=== PATIENT | male | born 1955 | race African-American/Black ===

== ENCOUNTER 2023-03-15 08:49 | Emergency (ER) | payer MEDICAID ==
[~2023-03-15] VITALS: Ht 182.9 cm; Wt 68.0 kg
[~2023-03-15 08:49] MED LIST: MOTRIN
[2023-03-15 08:51] VITALS: O2SAT 100
[2023-03-15] MEDS ORDERED: KETOROLAC 30MG/ML VIAL IM ONE (09:15)
[2023-03-15 09:30] LABS: BASOPHILS % 0.2 % (0.0-2.0); EOSINOPHILS % 0.8 % (0.0-5.0); HEMATOCRIT. 33.6 % (42.0-52.0); LYMPHOCYTES % 23.6 % (20.0-50.0); MEAN CORPUSCULAR HGB CONC 32.8 g/dL (31.0-37.0); MEAN CORPUSCULAR VOLUME 85.5 fL (80.0-94.0); MEAN PLATELET VOLUME 7.3 fl (7.4-10.4); MONOCYTES % 8.6 % (2.0-8.0); NEUTROPHILS % 66.8 % (40.0-76.0); PLATELET 398 x1000/uL (130-400); RED BLOOD CELL COUNT 3.92 mill/uL (4.7-6.1); RED CELL DISTRIBUTION WIDTH 15.7 % (11.6-14.6); WHITE BLOOD COUNT 9.3 x1000/uL (4.5-11.0)
[2023-03-15 10:39] LABS: CHLORIDE 106 mEq/L (98-107); INDEX HEMOLYSI 2 (1-3); INDEX ICTERIC 1 (1-4); INDEX LIPEMIC 1 (1-3); POTASSIUM 4.6 mEq/L (3.5-5.1); SODIUM 136 mEq/L (136-145)
[2023-03-15 10:49] LABS: ALANINE AMINOTRANSFERASE 37 IU/L (13-61); ALBUMIN 3.2 g/dL (3.4-5.0); ASPARTATE AMINOTRANSFERASE 34 IU/L (15-37); BILIRUBIN TOTAL 0.2 mg/dL (0.1-1.0); CALCIUM 8.9 mg/dL (8.5-10.1); CARBON DIOXIDE 22 mEq/L (21-32); CREATINE KINASE 121 IU/L (39-308); CREATININE 0.7 mg/dL (0.6-1.3); GLUCOSE 92 mg/dL (70-105); PROTEIN TOTAL 8.5 g/dL (6.0-8.3); UREA NITROGEN BLOOD 20 mg/dL (7-21)
[2023-03-15] MEDS ORDERED: NAPR-681 MT (12:01)
[2023-03-15] MEDS ORDERED: LIDO700A30 TP (12:01)
[2023-03-15 13:14] VITALS: BP 141/78; PULSE 95; RESP 20; TEMP 98
== END 2023-03-15 13:15 | disposition home or self-care (01) ==
LOC: ER 08:49
DX: M79.605 Pain in left leg (principal)
CPT/HCPCS: 80053; 82550; 85025; 36415; 93971; 96372; 99285; J1885; Z7610

== ENCOUNTER 2023-04-05 12:58 | Emergency (ER) | payer MEDICAID, MEDICARE ==
[~2023-04-05] VITALS: Ht 175.3 cm; Wt 77.0 kg
[~2023-04-05 12:58] MED LIST changes: +LIDO700A30 TP; +NAPR-681 MT
[2023-04-05 13:23] VITALS: O2SAT 100
[2023-04-05] MEDS ORDERED: LIDOCAINE 5% PATCH TOP STA (15:23)
[2023-04-05] MEDS ORDERED: HYDROCODONE/ACETAMINOPHEN 5/325MG TABLET PO ONE (15:30)
[2023-04-05] MEDS ORDERED: KETOROLAC 60MG/2ML VIAL IM ONE (15:30)
[2023-04-05] MEDS ORDERED: HYDR-4001 MT (15:43)
[2023-04-05] MEDS ORDERED: LIDO1ADH23 TP (15:43)
[2023-04-05 17:54] VITALS: BP 147/84; PULSE 106; RESP 18; TEMP 98.3
== END 2023-04-05 17:55 | disposition home or self-care (01) ==
LOC: ER 12:58
DX: G89.29 Other chronic pain (principal); C79.51 Secondary malignant neoplasm of bone
CPT/HCPCS: 96372; 99283; J1885; Z7610